=== PATIENT | female | born 1980 | race Two or more races ===

== ENCOUNTER 2016-07-08 14:01 | Emergency (ER) | payer SELFPAY ==
[~2016-07-08] VITALS: Ht 154.9 cm; Wt 74.8 kg
[2016-07-08] MEDS ORDERED: FENTANYL PF 100 MCG/2 ML VIAL. IV PRN (14:30)
[2016-07-08 14:40] LABS: BASO # 0.1 x10^3/uL (0.0-0.2); BASO % 1 % (0-3); EOS % 2 % (0-3); HEMOGLOBIN 13.6 g/dL (12.0-15.5); LYMPH # 2.6 x10^3/uL (1.0-4.8); LYMPH % 34 % (24-48); MEAN CORPUSCULAR HEMOGLOBIN 29 pg (25-35); MEAN CORPUSCULAR HGB CONC 32 g/dL (31-37); MEAN CORPUSCULAR VOLUME 89 fL (79-100); MONO % 7 % (0-9); NEUT % 57 % (31-73); PLATELET COUNT 229 x10^3/uL (140-400); RED BLOOD COUNT 4.71 x10^6/uL (3.50-5.40); RED CELL DISTRIBUTION WIDTH 13.6 % (11.5-14.5); WHITE BLOOD COUNT 7.8 x10^3/uL (4.0-11.0)
[2016-07-08 14:42] LABS: BILIRUBIN,URINE NEGATIVE (NEG); GLUCOSE,URINE NEGATIVE (NEG); NITRITE,URINE NEGATIVE (NEG); PH,URINE 5.5; PROTEIN,URINE NEGATIVE (NEG-TRACE); UROBILINOGEN,URINE 0.2 mg/dL (0.2 mg/dL)
[2016-07-08 14:55] LABS: BACTERIA,URINE MANY /HPF (0-FEW); SQUAMOUS EPITHELIAL CELL,UR MANY /LPF
[2016-07-08] MEDS ORDERED: ONDANSETRON PF 4 MG/2 ML VIAL. IV ONE (15:00)
[2016-07-08] MEDS ORDERED: IV NORMAL SALINE 1000ML BAG 1,000 ML IV SCH (15:00)
[2016-07-08 15:02] LABS: CALCIUM 8.9 mg/dL (8.5-10.1); CREATININE 0.7 mg/dL (0.6-1.0); GFR 94.7; POTASSIUM 3.4 mmol/L (3.5-5.1)
[2016-07-08 15:09] LABS: ALBUMIN 3.9 g/dL (3.4-5.0); ALBUMIN/GLOBULIN RATIO 1.1 (1.0-1.7); TOTAL PROTEIN 7.4 g/dL (6.4-8.2)
--- NOTE | 2016-07-08 15:17 | RAD ---
CT abdomen and pelvis without contrast History: Left flank pain. Comparison: None. Technique: Helical CT of the abdomen and pelvis was performed without intravenous or oral contrast. Axial, sagittal, and coronal reconstructions were obtained. One or more of the following individualized dose reduction techniques were utilized for the study: Automated exposure control Adjustment of mA and/or kV according to patient's size Use of iterative reconstruction technique. Findings: Evaluation of the solid organs is limited by lack of intravenous contrast. Evaluation of enteric structures may be limited by lack of oral contrast. Liver, spleen, pancreas, gallbladder, and bilateral adrenal glands are unremarkable. There is no evidence of bowel obstruction. No free air or significant free fluid is identified in the abdomen or pelvis. Appendix appears within normal limits. Urinary bladder is unremarkable. Uterus and adnexa have unremarkable CT appearance. A small umbilical hernia is present. Right kidney demonstrates 2 or 3 punctate nonobstructive nephroliths. The inferior pole of left kidney demonstrates 3 mm nonobstructive nephrolith. There may be one or 2 additional punctate nonobstructive nephroliths in the left kidney. Both ureters are free of stone or obstruction. There are 3 calcifications in the left hemipelvis which are thought to be phleboliths. Impression: 1. No acute abnormality identified in the abdomen or pelvis. 2. Bilateral nonobstructive nephrolithiasis. 3. Small fat-containing umbilical hernia.
[2016-07-08 15:38] LABS: NEG OBC UR NEG; POS OBC UR POS
[2016-07-08 16:07] VITALS: BP 98/55
[2016-07-08] MEDS ORDERED: HYDR-2666 PO (16:18)
[2016-07-08] MEDS ORDERED: IBUP-1060 PO (16:18)
--- NOTE | 2016-07-08 16:18 | PHYS DOC ---
Past Medical History Past Medical History: No Pertinent History Past Surgical History: No Surgical History Alcohol Use: None Drug Use: None Adult General Chief Complaint Chief Complaint: FLANK PAIN HPI HPI Patient is a 35 year old female brought to the ED by her with the complaint of left flank pain, severe, started about 20 minutes prior to arrival. Patient was fine yesterday, last night, and final day today, until she started having severe left flank pain. It became severe suddenly. She had nausea and vomiting with the onset. It does not radiate. Nothing makes it worse or better. She's never had pain like this before. It actually has been letting up for just about the past 5 minutes and is less severe than when she first got to the ED. When the pain started, she took ibuprofen 800 mg. She denies UTI symptoms. Denies fever or chills. Denies . She has had 6 children and would no if she was , she also just had a period. She is not using any contraception. Patient and her family are in town from [place] for a tournament for her kids. Review of Systems Review of Systems Constitutional: Denies fever or chills [] Eyes: Denies change in visual acuity, redness, or eye pain [] HENT: Denies nasal congestion or sore throat [] Respiratory: Denies cough or shortness of breath [] Cardiovascular: Denies chest pain GI: Denies abdominal pain, bloody stools or diarrhea [] : Denies dysuria or hematuria [] Integument: Denies rash or skin lesions [] Neurologic: Denies headache, focal weakness or sensory changes [] Current Medications Current Medications Current Medications Medications (Trade) Dose Ordered Sig/[place] Start Time Stop Time Status Last Admin Dose Admin Fentanyl Citrate 50 mcg 50 mcg PRN Q15MIN PRN 07/08/16 14:30 07/08/16 16:39 DC 07/08/16 14:49 50 MCG Ondansetron HCl (Zofran) 4 mg 1X ONCE 07/08/16 15:00 07/08/16 15:01 DC 07/08/16 14:48 4 MG Sodium Chloride (Iv Sodium Chloride 0.9% 1000ml Bag) 1,000 ml @ 100 mls/hr Q10H 07/08/16 15:00 07/08/16 16:39 DC 07/08/16 14:47 100 MLS/HR Allergies Allergies Allergies Coded Allergies Type Severity Reaction Last Updated Verified No Known Drug Allergies 07/08/16 No Physical Exam Physical Exam Constitutional: Well developed, well nourished, appears uncomfortable, has spit a little bit of saliva into an emesis basin HENT: Normocephalic, atraumatic, bilateral external ears normal, nose normal. [ ] Eyes: conjunctiva normal, no discharge. [] Neck: Normal range of motion, no stridor. [] Cardiovascular:Heart rate regular rhythm, no murmur [] Lungs & Thorax: Bilateral breath sounds clear to auscultation [] Abdomen: Bowel sounds normal, soft, no tenderness, no masses, no pulsatile masses. Left upper quadrant, left flank are nontender to palpation Skin: Warm, dry, no erythema, no rash. [] Back: No tenderness, no CVA tenderness. Left flank is nontender to palpation. There is no skin abnormality on the left flank. Extremities: No tenderness, no cyanosis, no clubbing, ROM intact, no edema. [] Neurologic: Alert and oriented X 3, normal motor function, normal sensory function, no focal deficits noted. [] Current Patient Data Vital Signs Vital Signs Date Time Temp Pulse Resp B/P Pulse Ox O2 Delivery O2 Flow Rate FiO2 07/08/16 16:07 64 98/55 99 07/08/16 14:49 12 07/08/16 14:25 97.7 Room Air 97.7 Lab Values Laboratory Tests Test 07/08/16 14:07 07/08/16 14:20 Urine Collection Type Unknown Urine Color Yellow Urine Clarity Clear Urine pH 5.5 Urine Specific [place] 1.025 Urine Protein Negativemg/dL (NEG-TRACE) Urine Glucose (UA) Negativemg/dL (NEG) Urine Ketones (Stick) Negativemg/dL (NEG) Urine Blood Moderate (NEG) Urine Nitrite Negative (NEG) Urine Bilirubin Negative (NEG) Urine Urobilinogen Dipstick 0.2mg/dL (0.2 mg/dL) Urine Leukocyte Esterase Small (NEG) Urine RBC 3-5/HPF (0-2) Urine WBC 5-10/HPF (0-4) Urine Squamous Epithelial Cells Many/LPF Urine Bacteria Many/HPF (0-FEW) Urine Mucus Mod/LPF Urine Test Negative (NEG) White Blood Count 7.8x10^3/uL (4.0-11.0) Red Blood Count 4.71x10^6/uL (3.50-5.40) Hemoglobin 13.6g/dL (12.0-15.5) Hematocrit 42.0% (36.0-47.0) Mean Corpuscular Volume 89fL (79-100) Mean Corpuscular Hemoglobin 29pg (25-35) Mean Corpuscular Hemoglobin Concent 32g/dL (31-37) Red Cell Distribution Width 13.6% (11.5-14.5) Platelet Count 229x10^3/uL (140-400) Neutrophils (%) (Auto) 57% (31-73) Lymphocytes (%) (Auto) 34% (24-48) Monocytes (%) (Auto) 7% (0-9) Eosinophils (%) (Auto) 2% (0-3) Basophils (%) (Auto) 1% (0-3) Neutrophils # (Auto) 4.5x10^3uL (1.8-7.7) Lymphocytes # (Auto) 2.6x10^3/uL (1.0-4.8) Monocytes # (Auto) 0.5x10^3/uL (0.0-1.1) Eosinophils # (Auto) 0.1x10^3/uL (0.0-0.7) Basophils # (Auto) 0.1x10^3/uL (0.0-0.2) Sodium Level 141mmol/L (136-145) Potassium Level 3.4mmol/L (3.5-5.1) L Chloride Level 105mmol/L (98-107) Carbon Dioxide Level 25mmol/L (21-32) Anion Gap 11 (6-14) Blood Urea Nitrogen 14mg/dL (7-20) Creatinine 0.7mg/dL (0.6-1.0) Estimated GFR (Cockcroft-Gault) 94.7 BUN/Creatinine Ratio 20 (6-20) Glucose Level 129mg/dL (70-99) H Calcium Level 8.9mg/dL (8.5-10.1) Total Bilirubin 1.0mg/dL (0.2-1.0) Aspartate Amino Transferase (AST) 13U/L (15-37) L Alanine Aminotransferase (ALT) 18U/L (14-59) Alkaline Phosphatase 83U/L (46-116) Total Protein 7.4g/dL (6.4-8.2) Albumin 3.9g/dL (3.4-5.0) Albumin/Globulin Ratio 1.1 (1.0-1.7) Laboratory Tests 07/08/16 14:20 Laboratory Tests 07/08/16 14:20 EKG EKG [] Radiology/Procedures Radiology/Procedures CT scan of the abdomen and pelvis read by the radiologist. Right kidney and left kidney have 2 or 3 small stones but no stones in the ureter. No ureter obstruction or other abnormality. [] Course & Med Decision Making Course & Med Decision Making Pertinent Labs and Imaging studies reviewed. (See chart for details) 35-year-old female without history of kidney stones presents with acute onset of left flank pain with nausea and vomiting suspicious for renal colic. I discussed with the patient and her that we will get some labs and a CT scan, give her some IV pain and nausea medications, they're agreeable to that plan. CT scan does not show any ureter stones or obstruction, but she does have small stones in both kidneys. I suspect she passed a small kidney stone. When I returned to recheck her, her pain had been much improved after 1 dose of IV pain medication. I discussed kidney stones with the patient and her , prescription for ibuprofen 800 mg and also hydrocodone if needed for more severe pain. She'll follow up with her primary care doctor when she gets back home to [place]. [] Dragon Disclaimer Dragon Disclaimer This electronic medical record was generated, in whole or in part, using a voice recognition dictation system. Departure Departure Impression: Primary Impression: Left flank pain Additional Impression: Kidney stones Disposition: HOME, SELF-CARE Condition: IMPROVED Referrals: NO PCP (PCP) Patient Instructions: Kidney Stones, [id number] Additional Instructions: CT scan showed kidney stones. You have small stones in both of your kidneys. The CT scan did not show any stone in your ureter, the tube the carRies urine from your kidney to your bladder. You might have just passed that stone.\ For 2 days, drink plenty of fluids. Take ibuprofen 800 mg every 8 hours around the clock for 2 days, then may stop if your pain is all gone. For more severe pain, hydrocodone as prescribed. As we discussed, that is an opiate. No driving while taking it. You may combine it with ibuprofen if you need to. If you continue to have pain or if it comes back, see your doctor when you return home. Scripts Hydrocodone Bit/Acetaminophen (Hydrocodone-Apap 5-325 )1 Each Tablet1 Tab PO PRN Q6HRS PRN PAIN #10 TAB Ref 0 For kidney stone pain For severe pain May take with ibuprofen Prov:DEDE HINTON MD 07/08/16 Ibuprofen 800 Mg [id number] Mg PO Q8HRS PRN INFLAMMATION #20 TAB For kidney stone pain Prov:DEDE HINTON MD 07/08/16 Problem Qualifiers DEDE HINTON MD Jul 08, 2016 16:18
== END 2016-07-08 16:39 | disposition home or self-care (01) ==
LOC: ER 14:01
DX: N20.0 Calculus of kidney (principal)
CPT/HCPCS: 36415; 74176; 80053; 81001; 81025; 85027; 87086; 96361; 96374; 96375; 99285; J2405; J3010; J7030